=== PATIENT | male | born 2000 | race Caucasian/White ===

== ENCOUNTER 2022-05-23 15:55 | Emergency (ER) | payer MEDICARE, MEDICAID, SELFPAY ==
[2022-05-23 16:07] VITALS: BP 131/83; PULSE 84; RESP 16; TEMP 36.6; O2SAT 98
--- NOTE | 2022-05-24 00:25 | ED_ITS ---
HPI - Dental/Oral General: Chief complaint: Dental/Oral Stated complaint: sore throat Time Seen by Provider: 05/23/22 16:17 History of Present Illness: 22-year-old male patient presents to the emergency department with a sore in his mouth. Patient states it does not really hurt unless something salty touches it. Patient denies any fever. Patient denies any other lesions anywhere else on his body. Patient denies any recent illness. Patient states he gets these from time to time. Patient denies any throat pain. Patient denies any difficulty swallowing. Associated symptoms: Denies ear or mastoid pain, fever(s), odynophagia or tongue swelling Review of Systems Const: Denies: fever(s), chills, body aches, change in appetite, change in weight, fatigue, malaise or diaphoresis Eyes: Denies: change in vision, blurry vision, blind spots, photophobia, eye discomfort, eye discharge, eye redness, floaters or seeing flashes ENMT: Reports: mouth pain; Denies: throat pain, uvular edema, enlarged tonsils, odynophagia, hoarseness, swelling of lips/tongue, oral sores, bleeding gums, dental pain, dry mouth, ear or mastoid pain, ear discharge, change in hearing, tinnitus, disequilibrium, nasal discharge, nasal congestion, post nasal drip or sinus pain Card: Denies: chest pain, palpitations, irregular heart rhythm, edema, swelling of feet/ankles, lightheadedness, syncope, pre-syncope, dyspnea on exertion, orthopnea, leg pain with exertion or acrocyanosis Resp: Denies: dyspnea, productive cough, non-productive cough, wheezing, stridor, pain on inspiration, change in phlegm color, hemoptysis or chest congestion GI: Denies: abdominal pain, nausea, vomiting, hematemesis, dysphagia, diarrhea, constipation, GI cramping, change in bowel habits or rectal pain : Denies: flank pain, dysuria, urinary frequency, urinary urgency, urinary hesitancy or hematuria Musc: Denies: neck pain, back pain, extremity pain, extremity swelling, joint pain, joint swelling, joint redness, joint warmth or deformity Skin/Breast: Denies: rash, pruritus, erythema, sores, new lesions, changes in skin color or dry skin Neuro: Denies: headache(s), numbness in extremities, weakness in extremities, sensory changes, lack of coordination, difficulty walking, frequent falls, dizziness, vertigo, confusion, behavioral changes, Slurred speech present, difficulty communicating thoughts or seizure-like activity Psych: Denies: anxiety, depression, suicidal ideation or homicidal ideation Endo: Denies: polyuria, polydipsia, tired all the time, cold intolerance, excessive sweating, flushing, hot flashes or heat intolerance Jonatan/Lymph: Denies: easy bruising, easy bleeding, petechiae, purpura, enlarged lymph nodes or tender lymph nodes All/Imm: Denies: urticaria, throat swelling, tongue swelling, facial swelling, acute wheezing or itchy eyes Physical Exam Const: COMMON NORMALS: no acute distress, average body habitus, patient oriented x3, no limitations, healthy appearing, alert and well nourished HENMT: COMMON NORMALS: normocephalic, atraumatic, hearing grossly normal bilaterally, external ears normal, EAC's normal, TM's normal bilaterally, Normal external nose present, Normal nasal mucous membranes and turbinates present, moist oral mucous membranes, oropharynx normal, dentition normal and gingiva normal HEAD & SCALP: normocephalic and atraumatic NOSE: Normal external nose present and Normal nasal mucous membranes and turbinates present EXTERNAL EAR: Yes external ears normal EXTERNAL AUDITORY CANAL: EAC's normal TYMPANIC MEMBRANE: TM's normal bilaterally MOUTH: lip normal, tongue normal, Normal salivary glands and ducts present, moist mucous membranes abnormal and other (small lesion to oral mucosa) THROAT: no uvular edema Neuro: COMMON NORMALS: patient oriented x3 SENSORIUM/ORIENTATION: Yes alert Skin: COMMON NORMALS: no wounds, turgor normal, no jaundice, no petechiae and no mottling GENERAL SKIN EXAM: turgor normal Course Vital Signs: Vital signs: Vital Signs Temperature 97.8 F 05/23/22 16:07 Pulse Rate 84 05/23/22 16:07 Respiratory Rate 16 05/23/22 16:07 Blood Pressure 131/83 05/23/22 16:07 Pulse Oximetry 98 05/23/22 16:07 Oxygen Delivery Me thod 05/23/22 16:07 MDM - Dental/Oral Medical Decision Making Patient is well appearing non toxic and in no acute distress. 22-year-old male patient presents to the emergency department with a sore in his mouth. Patient states it does not really hurt unless something salty touches it. Patient denies any fever. Patient denies any other lesions anywhere else on his body. Patient denies any recent illness. Patient states he gets these from time to time. Patient denies any throat pain. Patient denies any difficulty swallowing. I will prescribe patient viscous lidocaine to sweish and spit and have him follow up with PCP on wednesday for recheck. Discharge Plan Discharge Patient Disposition: Home Clinical Impression: Aphthous ulcer of mouth Condition: Stable Prescriptions: New Lidocaine Viscous 2 % solution 1 applic mucous membrane BID PRN (Reason: pain) 3 Days Qty: 100 0RF Discharge Orders: Discharge ED (Routine); Ordered 05/23/22 Ordered By: Jenna Conroy Referrals: Mani Gabriel MD [Primary Care Provider] - Discharge Diet: Advance as tolerated Discharge Activity: Increase activity as tolerated Patient Instructions: Opioid Safety Activity Restrictions/Additional Instructions: Please swish medication around mouth and then spit out Return to ER with any worsening of symptoms Please follow up with PCP on wednesday Coding Level of Care Code ED Medical Aide for Kvng Becerra
== END 2022-05-23 16:56 | disposition home or self-care (01) ==
PROVIDERS: Emergency Provider Registered Nurse; PCP General Practice
DX: K12.0 Recurrent oral aphthae (principal)
CPT/HCPCS: 99283

== ENCOUNTER 2023-01-31 22:24 | Emergency (ER) | payer MEDICARE, MEDICAID, SELFPAY ==
[2023-01-31] VITALS (8 sets, daily range): BP systolic 134–151; BP diastolic 82–128; PULSE 83–124; RESP 16–18; TEMP 37; O2SAT 94–97; BMI 17.8
[2023-01-31] MEDS: HYDROmorphone 1 mg/mL INJ 1 mL IVP ×3 (22:34→23:40)
[2023-01-31] MEDS: ondansetron 2 mg/ML SDV 2 mL 4 MG IVP (22:34)
[2023-01-31] MEDS: lactated ringers 1,000 ML 250 ML IV (22:34)
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
--- NOTE | 2023-02-01 06:32 | PC.NURSE ---
Lactated Ringer's continued with EMS @ 250 mL/hr
--- NOTE | 2023-02-07 14:19 | DCPLANNER ---
[facility] manager called patient due to no primary care physician - no answer at this time.
== END 2023-01-31 23:53 | disposition short-term general hospital (02) ==
PROVIDERS: Emergency Provider Emergency Medicine
DX: T21.24XA Burn of second degree of lower back, initial encounter (principal); T22.212A Burn of second degree of left forearm, initial encounter; T20.26XA Burn of second degree of forehead and cheek, initial encounter; T24.211A Burn of second degree of right thigh, initial encounter; T24.201A Burn of second degree of unspecified site of right lower limb, except ankle and foot, initial encounter; X08.8XXA Exposure to other specified smoke, fire and flames, initial encounter
CPT/HCPCS: 16030; 96361; 96374; 96375; 96376; 99285; J1170; J2405; J7120

== ENCOUNTER 2023-04-01 14:12 | Outpatient (RCR) | payer MEDICARE, MEDICAID, SELFPAY | END 2023-04-19 23:59 | disposition home or self-care (01) | LOC: SPT 14:12 | PROVIDERS: Visit Provider Nurse Practitioner Family | DX: M25.671 Stiffness of right ankle, not elsewhere classified (principal); M25.661 Stiffness of right knee, not elsewhere classified; R26.89 Other abnormalities of gait and mobility; M62.81 Muscle weakness (generalized) | CPT/HCPCS: 97110; 97116; 97161 ==

== ENCOUNTER 2023-04-20 06:00 | Outpatient (RCR) | payer MEDICARE, MEDICAID, SELFPAY | END 2023-05-20 23:59 | disposition home or self-care (01) | LOC: SPT 06:00 | PROVIDERS: Visit Provider Nurse Practitioner Family | DX: M25.671 Stiffness of right ankle, not elsewhere classified (principal); M25.661 Stiffness of right knee, not elsewhere classified; R26.89 Other abnormalities of gait and mobility; M62.81 Muscle weakness (generalized) | CPT/HCPCS: 97110 ==

== ENCOUNTER 2023-08-07 15:57 | Emergency (ER) | payer MEDICARE, MEDICAID, SELFPAY ==
[2023-08-07 16:00] VITALS: BP 124/80; PULSE 101; RESP 16; TEMP 36.5; O2SAT 97; BMI 16.9
--- NOTE | 2023-08-07 16:12 | XRR_ITS ---
PROCEDURE INFORMATION: Exam: XR Chest Exam date and time: 08/07/2023 4:44 PM Age: 23 years old Clinical indication: Chest pressure; Patient HX: RT anterior chest pain; Productive cough; Chest congestion; Wheezing; HX asthma TECHNIQUE: Imaging protocol: Radiologic exam of the chest. Views: 1 view. COMPARISON: CR XR chest 2V* [id number] 08/17/2017 9:54 PM FINDINGS: Lungs: Mildly hyperaerated lungs consistent with deep inspiratory effort vs mild reactive airway disease. Pleural spaces: Unremarkable. No pleural effusion. No pneumothorax. Heart/Mediastinum: Unremarkable. No cardiomegaly. Bones/joints: Unremarkable. XR/XR chest 1V [id number] IMPRESSION: Mildly hyperaerated lungs consistent with deep inspiratory effort vs mild reactive airway disease.
[2023-08-07] MEDS: predniSONE 20 mg Tablet 60 MG PO (17:41)
[2023-08-07 17:42] VITALS: BP 106/77; PULSE 79; RESP 17; O2SAT 95
[2023-08-07 18:02] VITALS: PULSE 89; RESP 16; O2SAT 92
[2023-08-07] MEDS: albuterol 8 gm MDI 2 PUFF INHALATION (18:02)
[2023-08-07 18:05] VITALS: PULSE 91
[2023-08-07 18:11] VITALS: BP 106/77; PULSE 91; RESP 16; TEMP 36.5; O2SAT 92
--- NOTE | 2023-08-08 02:17 | ED_ITS ---
HPI - URI/Sore Throat General: Chief Complaint: Upper Respiratory Infection Stated Complaint: cough, pain in right lung, runny nose Time Seen by Provider: 08/07/23 16:02 Source: patient Mode of arrival: ambulatory Limitations: no limitations History of Present Illness: Patient presents emergency department today accompanied by family for evaluation treatment of complaints of cough, chest tightness, and right-sided chest discomfort. Patient is a active smoker and states he also smokes marijuana. He has not had any since yesterday due to his current symptoms. Patient denies fevers or productive cough. He denies sore throat but has had quite a bit of nasal congestion. Multiple others at home currently with similar upper respiratory symptoms. Patient reports he typically uses an inhaler for his asthma but has run out and does not have a refill. Review of Systems General: Reports: 10 or more systems reviewed and unremarkable except in HPI and below Physical Exam Const: COMMON NORMALS: no acute distress, patient oriented x3 and alert HENMT: COMMON NORMALS: normocephalic, EAC's normal, TM's normal bilaterally, moist oral mucous membranes and oropharynx normal HEAD & SCALP: normocephalic EXTERNAL AUDITORY CANAL: EAC's normal TYMPANIC MEMBRANE: TM's normal bilaterally OTHER: Nasal passages are erythematous and boggy bilaterally. Patient has profuse amounts of clear, active nasal rhinorrhea present. Eye: COMMON NORMALS: Equal, round and reactive pupils present, EOMs intact bilaterally and conjunctivae normal CONJUNCTIVA: Yes conjunctivae normal PUPIL: Yes Equal, round and reactive pupils present Neck/C-Spine: COMMON NORMALS: no JVD Lymph: LYMPHATIC: no lymphadenopathy noted Resp: COMMON NORMALS: normal respiratory effort, No retractions and No use of accessory muscles Cardio: COMMON NORMALS: no JVD and regular rate RATE: regular rate : COMMON NORMALS: Yes no CVA tenderness BLADDER/KIDNEY EXAM: Yes no CVA tenderness Back/Pelvis: COMMON NORMALS: no CVA tenderness, thoracic and lumbar spine normal to inspection and thoraco-lumbar ROM normal Extremity: COMMON NORMALS: normal to inspection, full ROM and no pedal edema Neuro: COMMON NORMALS: patient oriented x3 SENSORIUM/ORIENTATION: Yes alert Skin: COMMON NORMALS: no rashes or lesions noted and turgor normal GENERAL SKIN EXAM: no rashes or lesions noted and turgor normal Course Vital Signs: Vital signs: Vital Signs Temperature 97.7 F 08/07/23 18:11 Pulse Rate 91 08/07/23 18:11 Respiratory Rate 16 08/07/23 18:11 Blood Pressure 106/77 08/07/23 18:11 Pulse Oximetry 92 08/07/23 18:11 Oxygen Delivery Me thod Room Air 08/07/23 18:02 MDM - URI/Sore Throat Medical Decision Making X-rays negative for any signs of acute abnormality but, patient does have a history of asthma which seems to be acutely worsened today due to suspected upper respiratory viral infection as it is affecting other members of the family. Patient was treated symptomatically with steroids and a refill on his albuterol inhaler. He was given return precautions for change or worsening in condition. He can still use [id number] cough and cold medication as needed during this time. Follow-up with primary care as needed or return to ER if worsening. Differential Diagnosis Likely upper respiratory infection; Unlikely croup, otitis media, sinusitis, bronchitis, influenza or pharyngitis Lab Data Radiology Impressions Chest X-Ray 08/07/23 16:12 IMPRESSION: Mildly hyperaerated lungs consistent with deep inspiratory effort vs mild reactive airway disease. All radiology interpretation(s) finalized by discharge Discharge Plan Discharge Patient Disposition: Home Clinical Impression: Upper respiratory infection, History of asthma Condition: Stable Prescriptions: New Ventolin HFA 90 mcg/actuation HFA aerosol inhaler 2 inh inhalation Q4H PRN (Reason: shortness of breath or wheezing) Qty: 8.5 0RF prednisone 20 mg tablet 20 mg PO BID 5 Days Qty: 10 0RF No Action sulfamethoxazole-trimethoprim [Bactrim DS] 800-160 mg tablet 1 tab PO BID 10 Days Qty: 20 0RF Discharge Orders: Discharge ED (Routine); Ordered 08/07/23 Ordered By: Laura Tboias Discharge Diet: Usual diet Discharge Activity: Increase activity as tolerated Patient Instructions: Upper Respiratory Infection (DC) Activity Restrictions/Additional Instructions: X-ray reveals no acute concerns however, with your history of asthma you are noticeably tight with decreased airflow in your right side. This is most likely due to inflammation of the airways which needs to be treated with your typical asthma medication. We will refill your inhaler for you to use during this time of illness and will treat symptomatically during this time of illness with oral steroids. Encourage you to use [id number] cough and cold medication as you may still have symptoms of upper respiratory viral infection for several days including sore throat, nasal congestion, cough, fatigue, and even possibly low-grade fevers. Continue to monitor for worsening of cough, difficulty breathing, productive cough, or sudden onset high fevers. If these agree should be seen and reevaluated. Coding Level of Care Code ED Cutting Table Operator for Kvng Becerra
== END 2023-08-07 18:12 | disposition home or self-care (01) ==
PROVIDERS: Emergency Provider Physician Assistant
DX: J06.9 Acute upper respiratory infection, unspecified (principal); J45.909 Unspecified asthma, uncomplicated
CPT/HCPCS: 71045; 94640; 99283; J3535; J7512

== ENCOUNTER 2024-08-30 00:50 | Emergency (ER) | payer MEDICARE, MEDICAID, SELFPAY ==
[2024-08-30 00:59] VITALS: BP 124/81; PULSE 106; RESP 18; TEMP 36.7; O2SAT 96
[2024-08-30 03:08] VITALS: BP 138/86; PULSE 82; RESP 18; TEMP 36.4; O2SAT 97; BMI 20.9
--- NOTE | 2024-08-30 03:15 | XRR_ITS ---
PROCEDURE INFORMATION: Exam: XR Chest Exam date and time: 08/30/2024 3:36 AM Age: 24 years old Clinical indication: Dyspnea and wheezing; Additional info: Wheezing dyspnea TECHNIQUE: Imaging protocol: Radiologic exam of the chest. Views: 1 view. COMPARISON: CR XR chest 1V [id number] 08/07/2023 4:44 PM FINDINGS: Lungs: Unremarkable. No consolidation. Pleural spaces: Unremarkable. No pleural effusion. No pneumothorax. Heart/Mediastinum: Unremarkable. No cardiomegaly. Bones/joints: Unremarkable. XR/XR chest 1V portable [id number] IMPRESSION: No acute findings.
[2024-08-30 03:17] VITALS: BP 138/86; PULSE 81; O2SAT 97
--- NOTE | 2024-08-30 03:29 | W.ED.ASTHMA ---
HPI - Asthma General: Chief Complaint: Asthma Stated Complaint: SOB Time Seen by Provider: 08/30/24 03:13 History of Present Illness: Patient presents to the ER with complaints of wheezing. This started this evening. Patient uses inhaler couple times for coming to the ER. Patient does states he feels better now. Denies any fever does have a nonproductive cough and wheezing. Related Data Previous Rx's Medication Instructions Recorded loratadine 10 mg tablet (Claritin) 10 mg PO DAILY #30 tabs 07/04/24 promethazine-DM 6.25 mg-15 mg/5 mL 5 ml PO Q6H #118 mL 07/04/24 oral syrup albuterol sulfate 90 mcg/actuation 2 puff inhalation Q6H PRN 07/05/24 aerosol inhaler shortness of breath or wheezing #6.7 grams prednisone 20 mg tablet 20 mg PO DAILY #5 tabs 08/30/24 Allergies Allergy/AdvReac Type Severity Reaction Status Date / Time No Known Allergies Allergy Verified 08/30/24 01:03 Review of Systems General: Reports: 10 or more systems reviewed and unremarkable except in HPI and below PFSH ED PFSH: Social History Smoking and tobacco/nicotine status: never used tobacco/nicotine Physical Exam Const: COMMON NORMALS: no acute distress, average body habitus, patient oriented x3, no limitations, healthy appearing, alert and well nourished HENMT: COMMON NORMALS: normocephalic, atraumatic, hearing grossly normal bilaterally, external ears normal, Normal external nose present and moist oral mucous membranes HEAD & SCALP: normocephalic and atraumatic NOSE: Normal external nose present EXTERNAL EAR: Yes external ears normal Neck/C-Spine: COMMON NORMALS: no JVD Chest: COMMONS NORMALS: normal inspection of the chest and normal palpation of entire chest wall Resp: COMMON NORMALS: normal respiratory effort, No retractions and No use of accessory muscles; negative for clear to auscultation bilaterally (Diffuse wheezing) AUSCULTATION: not clear to auscultation bilaterally (Diffuse wheezing) Cardio: COMMON NORMALS: no JVD, regular rate, regular rhythm, S1 normal heart sound present, S2 normal heart sound present, No gallops present (Cardio), No clicks present (Cardio), No murmurs present (Cardio) and No rub (Cardio) RATE: regular rate RHYTHM: regular rhythm HEART SOUNDS: S1 normal heart sound present and S2 normal heart sound present GI: COMMON NORMALS: Normal to inspection, nondistended, normoactive bowel sounds present, Soft to palpation, non-tender, No hepatosplenomegaly present and no masses PALPATION: Yes Soft to palpation and Yes No hepatosplenomegaly present Neuro: COMMON NORMALS: patient oriented x3 SENSORIUM/ORIENTATION: Yes alert Course Vital Signs: Vital signs: Vital Signs Temperature 97.5 F L 08/30/24 03:08 Pulse Rate 84 08/30/24 04:03 Respiratory Rate 18 08/30/24 04:03 Blood Pressure 138/86 08/30/24 03:17 Pulse Oximetry 98 08/30/24 04:03 Oxygen Delivery Me thod Room Air 08/30/24 04:03 MDM - Asthma Medical Decision Making Chest x-ray was negative, patient was given DuoNeb and 20 mg of prednisone patient is feeling much better. Patient be discharged home on 20 mg prednisone for 5 days. Medical Records I reviewed the patient's medical records. Lab Data I reviewed the patient's lab results. All radiology interpretation(s) finalized by discharge Discharge Plan Discharge Patient Disposition: Home Clinical Impression: Asthma with acute exacerbation Qualifiers: Asthma severity: unspecified severity Asthma persistence: unspecified Qualified Code(s): J45.901 - Unspecified asthma with (acute) exacerbation Condition: Stable Prescriptions: New prednisone 20 mg tablet 20 mg PO DAILY Qty: 5 0RF No Action promethazine-DM 6.25-15 mg/5 mL syrup 5 ml PO Q6H Qty: 118 0RF loratadine [Claritin] 10 mg tablet 10 mg PO DAILY Qty: 30 0RF albuterol sulfate 90 mcg/actuation HFA aerosol inhaler 2 puff inhalation Q6H PRN (Reason: shortness of breath or wheezing) Qty: 6.7 0RF Discharge Orders: Discharge ED (Routine); Ordered 08/30/24 Ordered By: Win Zacarias Patient Instructions: Asthma Exacerbation - Adult Activity Restrictions/Additional Instructions: Thank you for choosing [facility] for your healthcare needs today. Please realize that you were seen in the emergency department and that we are providing you with an emergency medical screening exam and this may not be a complete and all exclusive of all testing and/or medical workup we may need to determine your element or severity of your illness. It is very important that you follow-up as instructed with your primary care provider or specialist for the additional evaluation and to discuss your medical treatment plan. You may return to the emergency department should you have concerns or if your condition changes or worsens in any way. Coding Level of Care Code ED Per Diem for Kvng Becerra
[2024-08-30] MEDS: predniSONE 20 mg Tablet PO (03:36)
[2024-08-30 03:58] VITALS: PULSE 78; RESP 20; O2SAT 98
[2024-08-30] MEDS: ipratropium-albuterol 3 mL Neb INHALATION (03:58)
[2024-08-30 04:03] VITALS: PULSE 84; RESP 18; O2SAT 98
[2024-08-30 04:54] VITALS: BP 138/86; PULSE 95; O2SAT 95
== END 2024-08-30 04:40 | disposition home or self-care (01) ==
PROVIDERS: Emergency Provider Emergency Medicine
DX: J45.901 Unspecified asthma with (acute) exacerbation (principal)
CPT/HCPCS: 71045; 94640; 99283; J7512